=== PATIENT | female | born 1980 | race Caucasian/White ===

== ENCOUNTER → 2021-05-21 | Outpatient (CLI) | payer BC ==
[~2021-05-21] MED LIST: COLACE 100MG C100 MG PO
[2021-05-21 10:35] LABS: HEMOGLOBIN 13.2 gm/dl (12.3-15.3); RED BLOOD COUNT 4.59 M/UL (4.00-5.10); WHITE BLOOD COUNT 12.4 K/UL (4.5-11.0)
== END ==
LOC: LAB 09:58
PROVIDERS: Nurse Practitioner Family
DX: D72.829 Elevated white blood cell count, unspecified (principal)
CPT/HCPCS: 36415; 85025

== ENCOUNTER → 2022-01-05 | Outpatient (CLI) | payer BC | LOC: CT 09:13 | DX: K11.23 Chronic sialoadenitis (principal) | CPT/HCPCS: 36415; 70491; 82565; 84520; Q9967 ==